=== PATIENT | male | born 1995 | race Two or more races ===

== ENCOUNTER 2023-04-13 00:51 | Emergency (ER) | payer OTHER, SELFPAY ==
--- NOTE | 2023-04-13 00:53 | ED.CHESTPAI1 ---
HPI - Chest Pain General Chief Complaint: Overdose Stated Complaint: CHEST PAIN Time Seen by Provider: 04/13/23 00:53 History of Present Illness HPI narrative: patient apparently smoked marijuana and methamphetamine earlier this evening - he said he does that daily. He also had crack cocaine a couple of days ago. He developed chest pain. He tried to go to [place] ED but the wait to be seen was too long, so he apparently drove to [place] and approached a police booking officer in a vehicle and told the officer that he was having chest pain. Local EMS was dispatched and brought the patient to our ED for evaluation. Related Data Home Medications Medication Instructions Recorded Confirmed No Known Home Medications 04/13/23 04/13/23 Allergies Allergy/AdvReac Type Severity Reaction Status Date / Time No Known Drug Allergies Allergy Verified 04/13/23 00:58 Exam Narrative Exam Narrative: Nurses notes and vital signs reviewed and patient is not hypoxic. afebrile General: Well-appearing and in no apparent distress. Skin: Warm, dry, no pallor noted. No rash. Head: Normocephalic, atraumatic. Eye: Pupils are equal, round and EOMI. No scleral icterus. Ears, Nose, Mouth, and Throat: Oral mucosa is moist Cardiovascular: Regular Rate and Rhythm without murmur, gallop or rub. Respiratory: No accessory muscle use or respiratory distress. Lungs are clear to auscultation, no wheezing, rales or rhonchi Chest Wall: no tenderness, crepitus or subcutaneous emphysema Musculoskeletal: normal ROM, no calf or popliteal tenderness, no lower extremity edema/swelling GI: Abdomen is soft, non-distended. Normal bowel sounds. No tenderness to palpation. No rebound, guarding, or rigidity noted. Neurological: A&O x4. No cranial nerve dysfunction observed. No truncal ataxia. Moves all extremities. Sensation intact. Psychiatric: Cooperative and interactive. Normal mood and affect. Constitutional Vital Signs - 24 hr 04/13/23 00:55 Temperature 99.1 F Pulse Rate [Monitor] 81 Respiratory Rate 18 Blood Pressure [Right Arm] 117/83 H Pulse Oximetry 97 Oxygen Delivery Method Room Air Course Vital Signs Vital signs: Vital Signs Temperature 99.1 F 04/13/23 00:55 Pulse Rate 81 04/13/23 00:55 Respiratory Rate 18 04/13/23 00:55 Blood Pressure 117/83 H 04/13/23 00:55 Pulse Oximetry 97 04/13/23 00:55 Oxygen Delivery Method Room Air 04/13/23 00:55 Temperature 99.1 F 04/13/23 00:55 Pulse Rate 81 04/13/23 00:55 Respiratory Rate 18 04/13/23 00:55 Blood Pressure 117/83 H 04/13/23 00:55 Pulse Oximetry 97 04/13/23 00:55 Oxygen Delivery Method Room Air 04/13/23 00:55 MDM - Chest Pain MDM Narrative Medical decision making narrative: The patient admits to abusing cocaine and methamphetamine in addition to daily marijuana use. Patient was placed on air sampling and monitoring and EKG obtained. Blood drawn and sent for evaluation. CXR obtained. Workup was negative. Patient declined offer for rehab referral. He was instructed to stop using drugs including methamphetamines and cocaine and was discharged home. Lab Data Attestation: I reviewed the patient's lab results. Labs: Lab Results 04/13/23 Range/Units 01:00 WBC 9.0 (4.0-11.0) 10^3/uL RBC 5.45 (4.70-6.10) 10^6/uL Hgb 17.7 (14.0-18.0) g/dL Hct 49.7 (42.0-54.0) % MCV 91.2 (80.0-94.0) fL MCH 32.5 (25.9-34.0) pg MCHC 35.6 H (29.9-35.2) g/dL RDW 12.2 (11.0-15.0) % Plt Count 287 (150-450) 10^3/uL MPV 8.8 L (9.5-13.5) fL Neut % (Auto) 66.3 (43.0-75.0) % Lymph % (Auto) 22.3 (20.5-60.0) % [place] % (Auto) 8.7 (1.7-12.0) % Eos % (Auto) 2.3 (0.9-7.0) % Baso % (Auto) 0.2 (0.2-2.0) % Neut # (Auto) 6.0 (1.4-6.5) 10^3/uL Lymph # (Auto) 2.0 (1.2-3.8) 10^3/uL [place] # (Auto) 0.8 (0.3-0.8) 10^3/uL Eos # (Auto) 0.2 (0.0-0.7) 10^3/uL Baso # (Auto) 0.0 (0.0-0.1) 10^3/uL Abs Immat Gran (auto) 0.02 (0.00-0.03) 10^3/uL Imm/Tot Granulo (auto) 0.2 (0.0-0.5) % Sodium 137 (136-145) mmol/L Potassium 3.7 (3.5-5.1) mmol/L Chloride 103 (98-107) mmol/L Carbon Dioxide 26.3 (21.0-32.0) mmol/L Anion Gap 11.4 BUN 13.0 (7.0-18.0) mg/dL Creatinine 1.13 (0.70-1.30) mg/dL Est GFR ( Amer) >60 (>=60) Est GFR (Non-Af Amer) >60 (>=60) BUN/Creatinine Ratio 11.5 Glucose 122 H (74-106) mg/dL Calcium 9.2 (8.5-10.1) mg/dL Troponin I High Sens 9.7 (4.0-76.1) pg/mL Imaging Data Chest x-ray: Attestation: I personally reviewed and interpreted this imaging study as follows: My impression: no acute cardiopulmonary abnormality ECG Data Attestation: ?I have reviewed the pertinent ECG results. Interpretation: EKG interpretation: Emergency Department physician interpretation. Normal sinus rhythm at 82bpm. Normal axis, normal intervals and no ST segment elevation or depression. SupraVentricular Premature Complex noted Heart Score History: Slightly/Non-Suspicious ECG: Normal Age: <45 years Risk Factors: No Risk Factors Troponin: <Normal Limit Total Heart Score Recommendations & Risks:: 0 Discharge Plan Discharge Chief Complaint: Overdose Clinical Impression: Cocaine abuse, Methamphetamine abuse, Chest pain Patient Disposition: Home, Self-Care Time of Disposition Decision: 01:44 Prescriptions / Home Meds: No Action No Known Home Medications Instructions: Chest Pain (ED), Cocaine Use Disorder (ED), Methamphetamine Use Disorder (ED) Stand Alone Forms: Portal Instructions Referrals: Physician,Non-Staff, MD [Primary Care Provider] - 1 week
[2023-04-13 00:55] VITALS: BP 117/83; PULSE 81; RESP 18; TEMP 37.3; O2SAT 97; BMI 29.4
--- NOTE | 2023-04-13 01:00 | ECG_ITS ---
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
--- NOTE | 2023-04-13 01:00 | XR_ITS ---
[facility] [id number] Patient Name: NIKOLAY ADAN MRN: [id number] date: 1995 Sex: M Assigned Patient Location: ED.MAIN Current Patient Location: ED.MAIN Accession/Order Number: [id number] Exam Date: 04/13/2023 01:25 Report Date: 04/13/2023 01:45 At the request of: GRETCHEN NGUYEN Procedure: XR chest 1V EXAM: XR chest 1V HISTORY: chest pain COMPARISON: Chest x-ray 12/10/2022 TECHNIQUE: Single frontal view chest x-ray FINDINGS: Mild left infrahilar lower lung streaky opacities. No lobar lung consolidation, large pleural effusions, pneumothorax, or acute bony abnormality. Cardiac size is unremarkable. IMPRESSION: Mild left infrahilar lower lung streaky opacities reflecting atelectasis, less likely infiltrates. Correlate clinically. Otherwise, no radiographic lung consolidation or large pleural effusions. Electronically authenticated by: DADA THAPA Date: 04/13/2023 01:45
[2023-04-13 01:13] LABS: Basophils Percent Auto 0.2 % (0.2-2.0); Eosinophils Absolute Auto 0.2 10^3/uL (0.0-0.7); Eosinophils Percent Auto 2.3 % (0.9-7.0); Hematocrit 49.7 % (42.0-54.0); Hemoglobin 17.7 g/dL (14.0-18.0); Immature Granulocytes Abs Auto 0.02 10^3/uL (0.00-0.03); Immature Granulocytes Pct Auto 0.2 % (0.0-0.5); Lymphocytes Percent Auto 22.3 % (20.5-60.0); Mean Corpuscular HGB Conc 35.6 g/dL (29.9-35.2); Mean Corpuscular Hemoglobin 32.5 pg (25.9-34.0); Mean Corpuscular Volume 91.2 fL (80.0-94.0); Mean Platelet Volume 8.8 fL (9.5-13.5); Monocytes Absolute Auto 0.8 10^3/uL (0.3-0.8); Monocytes Percent Auto 8.7 % (1.7-12.0); Neutrophils Percent Auto 66.3 % (43.0-75.0); Platelet Count 287 10^3/uL (150-450); Red Blood Count 5.45 10^6/uL (4.70-6.10); Red Cell Distribution Width 12.2 % (11.0-15.0)
[2023-04-13] MEDS: KETOROLAC TROMETHAMINE 30 MG/ML VIAL IVP (01:15)
[2023-04-13 01:25] LABS: Anion Gap 11.4; BUN Creatinine Ratio 11.5; Calcium 9.2 mg/dL (8.5-10.1); Carbon Dioxide 26.3 mmol/L (21.0-32.0); Chloride 103 mmol/L (98-107); Estimated GFR (African America >60 (>=60); Estimated GFR (Non-African Ame >60 (>=60); Glucose 122 mg/dL (74-106); Potassium 3.7 mmol/L (3.5-5.1); Sodium 137 mmol/L (136-145); Troponin I High Sensitivity 9.7 pg/mL (4.0-76.1)
== END 2023-04-13 02:11 | disposition home or self-care (01) ==
PROVIDERS: Emergency Provider Emergency Medicine
DX: R07.9 Chest pain, unspecified (principal); F14.10 Cocaine abuse, uncomplicated; F15.10 Other stimulant abuse, uncomplicated; F12.90 Cannabis use, unspecified, uncomplicated
CPT/HCPCS: 36415; 71045; 80048; 84484; 85025; 93005; 96374; 99285

== ENCOUNTER 2023-08-01 01:46 | Emergency (ER) | payer SELFPAY ==
[2023-08-01 01:49] VITALS: BP 124/93; PULSE 85; RESP 20; TEMP 36.9; O2SAT 98
--- NOTE | 2023-08-01 02:05 | ED_ITS ---
HPI - SOB/Dyspnea General Chief Complaint: Chest Pain Stated Complaint: sob Time Seen by Provider: 08/01/23 02:01 Source: patient Mode of arrival: walk-in Limitations: no limitations History of Present Illness HPI Narrative: chest feels tight. Admits to past use of methamphetamines. Also history of anxiety. left work and came here tonight because his chest feels tight. States it feels like he needs to cough something out of his chest but can't get it out. No fever or nausea or abdominal pain. States he has felt this way for a couple of days but increased tonight Related Data Home Medications Medication Instructions Recorded Confirmed No Known Home Medications 04/13/23 08/01/23 Allergies Allergy/AdvReac Type Severity Reaction Status Date / Time No Known Drug Allergies Allergy Verified 08/01/23 01:54 Review of Systems ROS Status of ROS 10 or more systems reviewed and unremarkable except as noted in history and below Exam Constitutional Vital Signs, click to edit/add: Last Vital Signs Temp 98.4 F 08/01/23 01:49 Pulse 85 08/01/23 01:49 Resp 20 08/01/23 01:49 BP 124/93 H 08/01/23 01:49 Pulse Ox 98 08/01/23 01:49 O2 Del Method Room Air 08/01/23 01:49 Common normals: no apparent distress (anxious), oriented x3 and alert HENMT Other: mild erythema or oral pharynx. no exudate or swelling Eye Common normals: PERRL, EOMs intact bilaterally and conjunctivae normal Respiratory Common normals: normal respiratory effort, no retractions, no use of accessory muscles and clear to auscultation bilaterally Cardio Common normals: regular rate, regular rhythm, S1 normal heart sound and S2 normal heart sound GI Common normals: Normal to inspection, nondistended, normoactive bowel sounds present, soft to palpation and non-tender Extremity Common normals: normal to inspection and full ROM Neuro Common normals: oriented x3, CN's II-XII intact bilaterally, moves all extremities, no focal motor deficits and no sensory deficits noted Psych Mood and affect: anxious Course Vital Signs Vital signs: Vital Signs Temperature 98.4 F 08/01/23 01:49 Pulse Rate 85 08/01/23 01:49 Respiratory Rate 20 08/01/23 01:49 Blood Pressure 124/93 H 08/01/23 01:49 Pulse Oximetry 98 08/01/23 01:49 Oxygen Delivery Method Room Air 08/01/23 01:49 Temperature 98.4 F 08/01/23 01:49 Pulse Rate 85 08/01/23 01:49 Respiratory Rate 20 08/01/23 01:49 Blood Pressure 124/93 H 08/01/23 01:49 Pulse Oximetry 98 08/01/23 01:49 Oxygen Delivery Method Room Air 08/01/23 01:49 MDM - SOB/Dyspnea MDM Narrative Medical decision making narrative: patient presented complaining of tightness in his chest and a sensation that he needed to cough something out of his lungs. Exam neg. Workup neg including d- dimer, EKG, troponin and chest xray. Patient symptoms improved on their own. At the time of discharge he stated his throat was sore and it was swabbed. He did not want to wait for the results Lab Data Labs: Lab Results 08/01/23 08/01/23 Range/Units 02:00 03:25 WBC 7.9 (4.0-11.0) 10^3/uL RBC 5.05 (4.70-6.10) 10^6/uL Hgb 16.4 (14.0-18.0) g/dL Hct 47.5 (42.0-54.0) % MCV 94.1 H (80.0-94.0) fL MCH 32.5 (25.9-34.0) pg MCHC 34.5 (29.9-35.2) g/dL RDW 12.1 (11.0-15.0) % Plt Count 247 (150-450) 10^3/uL MPV 8.9 L (9.5-13.5) fL Neut % (Auto) 65.5 (43.0-75.0) % Lymph % (Auto) 24.1 (20.5-60.0) % [place] % (Auto) 7.8 (1.7-12.0) % Eos % (Auto) 2.0 (0.9-7.0) % Baso % (Auto) 0.3 (0.2-2.0) % Neut # (Auto) 5.2 (1.4-6.5) 10^3/uL Lymph # (Auto) 1.9 (1.2-3.8) 10^3/uL [place] # (Auto) 0.6 (0.3-0.8) 10^3/uL Eos # (Auto) 0.2 (0.0-0.7) 10^3/uL Baso # (Auto) 0.0 (0.0-0.1) 10^3/uL Abs Immat Gran (auto) 0.02 (0.00-0.03) 10^3/uL Imm/Tot Granulo (auto) 0.3 (0.0-0.5) % D-Dimer <0.19 (<=0.59) mg/L FEU Sodium 138 (136-145) mmol/L Potassium 3.7 (3.5-5.1) mmol/L Chloride 104 (98-107) mmol/L Carbon Dioxide 28.2 (21.0-32.0) mmol/L Anion Gap 9.5 BUN 13.0 (7.0-18.0) mg/dL Creatinine 1.09 (0.70-1.30) mg/dL Est GFR ( Amer) >60 (>=60) Est GFR (Non-Af Amer) >60 (>=60) BUN/Creatinine Ratio 11.9 Glucose 118 H (74-106) mg/dL Calcium 8.5 (8.5-10.1) mg/dL Total Bilirubin 1.1 H (0.2-1.0) mg/dL AST 14 L (15-37) U/L ALT 26 (16-63) U/L Alkaline Phosphatase 52 (46-116) U/L Troponin I High Sens 11.6 (4.0-76.1) pg/mL Total Protein 7.1 (6.4-8.2) g/dL Albumin 3.7 (3.4-5.0) g/dL Globulin 3.4 g/dL Albumin/Globulin Ratio 1.1 Streptococcus Screen Negative Discharge Plan Discharge Chief Complaint: Chest Pain Clinical Impression: Atypical chest pain, Anxiety Patient Disposition: Home, Self-Care Prescriptions / Home Meds: No Action No Known Home Medications Instructions: Chest Pain (ED) Stand Alone Forms: Portal Instructions Referrals: Physician,Non-Staff, MD [Primary Care Provider] - 1 week Discharge Date/Time: 08/01/23 03:31
--- NOTE | 2023-08-01 02:05 | XR_ITS ---
[facility] [place] [id number] Patient Name: NIKOLAY ADAN MRN: [id number] date: 1995 Sex: M Assigned Patient Location: ER Current Patient Location: ER Accession/Order Number: [id number] Exam Date: 08/01/2023 02:15 Report Date: 08/01/2023 02:47 At the request of: BILLY HICKEY Procedure: XR chest 1V EXAM: XR chest 1V HISTORY: cough COMPARISON: Chest x-ray dated 04/13/2023 TECHNIQUE: Single frontal view chest x-ray FINDINGS: No lung consolidation, large pleural effusions, pneumothorax, or acute bony abnormality. Cardiac size is unremarkable. XR/XR chest 1V IMPRESSION: No radiographic evidence for acute chest abnormality. Electronically authenticated by: DADA THAPA Date: 08/01/2023 02:47
--- NOTE | 2023-08-01 02:05 | ECG_ITS ---
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
--- NOTE | 2023-08-01 02:08 | PC.NURSE ---
PATIENT COMES TO ED WITH COMPLAINT OF CHEST PRESSURE AND PAIN, SHORTNESS OF BREATH AND FEELILNG LILKE SOMETHING JUST ISNT RIGHT . HE HAS HX OF ASTHMA AND USED TO TAKE SINGULAIR, BUT NOW TAKES NO TREATMENT. HE ADMITS TO DRUG USE, INCLUDING SMOKING CRACK 2 MONTHS AGO, SNORTING COCAINE LAST TIME WAS 2 DAYS AGO AND METH USE LAST TIME WAS YESTERDAY. HE SAYS THAT HE WANTS TO BE DONE USING METH BECAUSE HE KNOWS IT IS HARMING HIM.
[2023-08-01 02:10] LABS: Basophils Percent Auto 0.3 % (0.2-2.0); Eosinophils Absolute Auto 0.2 10^3/uL (0.0-0.7); Hematocrit 47.5 % (42.0-54.0); Hemoglobin 16.4 g/dL (14.0-18.0); Immature Granulocytes Abs Auto 0.02 10^3/uL (0.00-0.03); Immature Granulocytes Pct Auto 0.3 % (0.0-0.5); Lymphocytes Absolute Auto 1.9 10^3/uL (1.2-3.8); Lymphocytes Percent Auto 24.1 % (20.5-60.0); Mean Corpuscular HGB Conc 34.5 g/dL (29.9-35.2); Mean Corpuscular Hemoglobin 32.5 pg (25.9-34.0); Mean Corpuscular Volume 94.1 fL (80.0-94.0); Mean Platelet Volume 8.9 fL (9.5-13.5); Monocytes Absolute Auto 0.6 10^3/uL (0.3-0.8); Monocytes Percent Auto 7.8 % (1.7-12.0); Neutrophils Absolute Auto 5.2 10^3/uL (1.4-6.5); Neutrophils Percent Auto 65.5 % (43.0-75.0); Platelet Count 247 10^3/uL (150-450); Red Blood Count 5.05 10^6/uL (4.70-6.10); Red Cell Distribution Width 12.1 % (11.0-15.0); White Blood Count 7.9 10^3/uL (4.0-11.0)
[2023-08-01 02:23] LABS: Alanine Aminotransferase 26 U/L (16-63); Albumin Globulin Ratio 1.1; Albumin Level 3.7 g/dL (3.4-5.0); Alkaline Phosphatase 52 U/L (46-116); Anion Gap 9.5; Aspartate Amino Transferase 14 U/L (15-37); BUN Creatinine Ratio 11.9; Bilirubin Total 1.1 mg/dL (0.2-1.0); Calcium 8.5 mg/dL (8.5-10.1); Carbon Dioxide 28.2 mmol/L (21.0-32.0); Chloride 104 mmol/L (98-107); Estimated GFR (African America >60 (>=60); Estimated GFR (Non-African Ame >60 (>=60); Globulin 3.4 g/dL; Glucose 118 mg/dL (74-106); Potassium 3.7 mmol/L (3.5-5.1); Sodium 138 mmol/L (136-145); Total Protein 7.1 g/dL (6.4-8.2); Troponin I High Sensitivity 11.6 pg/mL (4.0-76.1)
[2023-08-01 02:58] LABS: D Dimer <0.19 mg/L FEU (<=0.59)
[2023-08-01 04:13] LABS: Internal Control Within Normal Limits; Strep A Antigen Screen Negative
== END 2023-08-01 03:31 | disposition home or self-care (01) ==
PROVIDERS: Emergency Provider Internal Medicine
DX: R07.89 Other chest pain (principal); F41.9 Anxiety disorder, unspecified; F15.90 Other stimulant use, unspecified, uncomplicated
CPT/HCPCS: 36415; 71045; 80053; 84484; 85025; 85378; 87070; 87880; 93005; 99285